=== PATIENT | female | born 1980 | race African-American/Black ===

== ENCOUNTER 2019-07-29 05:37 | Inpatient (IN) | payer OTHER ==
[~2019-07-29] VITALS: Ht 167.6 cm; Wt 93.9 kg
[2019-07-29] MEDS ORDERED: LACTATED RINGERS 1,000 ML IV SCH (06:04)
[2019-07-29] MEDS ORDERED: CARBOPROST 250 MCG/ML AMP IM PRN (06:05)
[2019-07-29] MEDS ORDERED: OXYTOCIN 20 UNITS in LACTATED RINGERS 1,000 ML IV SCH (06:05)
[2019-07-29] MEDS ORDERED: METHYLERGONOVINE 0.2 MG/ML AMP IM PRN ×2 (06:05→08:30)
[2019-07-29] MEDS ORDERED: fentaNYL 0.05 MG/ML VIAL ONE ×2 (06:09→07:49)
[2019-07-29] MEDS ORDERED: CLINDAMYCIN 900 MG/6 ML VIAL IV ONE (06:11)
[2019-07-29 06:57] LABS: HEMATOCRIT 25.4 % (36-48); HEMOGLOBIN 7.3 g/dL (12.0-16.0); MEAN CORPUSCULAR HEMOGLOBIN 17 pg (27-31); MEAN CORPUSCULAR HGB CONC 29 g/dL (33-37); PLATELET COUNT (AUTO) 245 K/uL (140-450); RED BLOOD CELL COUNT(AUTO) 4.39 MIL/uL (4.20-5.40); RED CELL DISTRIBUTION WIDTH 22.7 % (11.6-13.7); WHITE BLOOD COUNT (AUTO) 12.8 K/uL (4.8-10.8)
[2019-07-29 07:16] LABS: ALBUMIN 2.8 g/dL (3.4-5.0); ANION GAP 20.7 (8-16); TOTAL BILIRUBIN 0.6 mg/dL (0.0-1.0)
[2019-07-29 07:28] LABS: POTASSIUM 2.7 mmol/L (3.5-5.1)
[2019-07-29] MEDS ORDERED: OXYTOCIN 20 UNITS/LR PREMIX 1,000 ML IV ONE (07:28)
[2019-07-29] MEDS ORDERED: LIDOCAINE 1% 500 MG/50 ML VIAL ONE (07:37)
[2019-07-29 07:39] LABS: EOSINOPHILS % (MANUAL) 1 % (0-4); LYMPHOCYTES % (MANUAL) 17 % (20-46); MONOCYTES % (MANUAL) 4 % (5-12)
[2019-07-29] MEDS ORDERED: METHYLERGONOVINE 0.2 MG/ML AMP ONE (07:45)
[2019-07-29] MEDS ORDERED: fentaNYL 0.05 MG/ML VIAL IVP ONE (07:50)
[2019-07-29] MEDS ORDERED: CARBOPROST 250 MCG/ML AMP IM ONE (07:51)
[2019-07-29 07:59] VITALS: BP 138/59
[2019-07-29] MEDS ORDERED: INFLUENZA VACCINE QUAD 0.5 ML SYR IMVAC PRN (08:00)
--- NOTE | 2019-07-29 08:15 | NUR ---
PATIENT HAS BEEN SCREENED AND CATEGORIZED LOW NUTRITION RISK. PATIENT WILL BE SEEN WITHIN 7 DAYS OF ADMISSION. 08/04/[address]
[2019-07-29] MEDS ORDERED: IBUPROFEN 800 MG TAB PO PRN (08:30)
[2019-07-29] MEDS ORDERED: BENZOCAINE/MENTHOL 20%-0.5% 60 GM CAN TP PRN (08:30)
[2019-07-29] MEDS ORDERED: MEASLES, MUMPS, AND RUBELLA 1 VIAL SQVAC PRN (08:30)
[2019-07-29] MEDS ORDERED: OXYTOCIN 10 UNITS/ML VIAL IM PRN (08:30)
[2019-07-29] MEDS ORDERED: METHYLERGONOVINE 0.2 MG TAB PO PRN (08:30)
[2019-07-29] MEDS ORDERED: POTASSIUM CHLORIDE 40 MEQ, LIDOCAINE MPF 1% 25 MG in NACL 0.9% 250 ML IV SCH (09:00)
[2019-07-29] MEDS: oxyCODONE/APAP 5/325 MG 1 TAB TAB PO PRN ×2 (09:56→21:31)
[2019-07-29 10:25] LABS: APPEARANCE,URINE CLOUDY (CLEAR); BILIRUBIN,URINE NEGATIVE (NEGATIVE); BLOOD, URINE 3+ (NEGATIVE); COLOR,URINE RED (YELLOW); LEUKOCYTE ESTERASE ,URINE 1+ (NEGATIVE); NITRITE, URINE POSITIVE (NEGATIVE); PH,URINE 6.5 (5.0-9.0); UGLUCOSE TRACE (NEGATIVE)
[2019-07-29] MEDS ORDERED: ONDANSETRON 4 MG TAB PO PRN (10:25)
[2019-07-29 10:28] LABS: BARBITURATE, URINE NEG. ng/ml (NEG <=200); BENZODIAZEPINE, URINE NEG. ng/mL (NEG <=200); CANNABINOID, URINE NEG. ng/mL (NEG <=50); COCAINE, URINE NEG. ng/mL (NEG <=300); OPIATE, URINE NEG. ng/mL (NEG <=2000); PHENCYCLIDINE SCREEN,URINE NEG. ng/mL (NEG <=25)
[2019-07-29 11:59] LABS: RBC,URINE TOO NUMEROUS TO COUN /HPF (0-5)
[2019-07-29 12:00] LABS: WBC,URINE 0-5 /HPF (0-5)
[2019-07-29] MEDS ORDERED: CLINDAMYCIN 900 MG in DEXTROSE 5% 100 ML IV SCH (13:00)
[2019-07-29 14:18] LABS: HEMATOCRIT 25.6 % (36-48); HEMOGLOBIN 7.3 g/dL (12.0-16.0)
[2019-07-29] MEDS ORDERED: ONDANSETRON 4 MG/2 ML VIAL ONE (21:19)
[2019-07-30] MEDS ORDERED: ACETAMINOPHEN EXTRA STRENGTH 500 MG TAB ONE (12:05)
[2019-07-30] MEDS ORDERED: diphenhydrAMINE 50 MG CAP PO ONE (12:07)
[2019-07-31] MEDS ORDERED: diphenhydrAMINE 50 MG CAP PO PRN (08:45)
[2019-07-31] MEDS ORDERED: FAMOTIDINE 20 MG TAB PO SCH (09:00)
[2019-07-31] MEDS ORDERED: FAMOTIDINE 20 MG TAB ONE (10:06)
== END 2019-07-31 18:35 | disposition home or self-care (01) | DRG 560 ==
LOC: MLD 05:37 → MFCC 09:40
PROVIDERS: ADMIT Obstetrics & Gynecology; ATTEND Obstetrics & Gynecology
PROC: 10E0XZZ Delivery of Products of Conception, External Approach (ICD-10-PCS; principal; 2019-07-29)
PROC: 10907ZC Drainage of Amniotic Fluid, Therapeutic from Products of Conception, Via Natural or Artificial Opening (ICD-10-PCS; 2019-07-29)
PROC: 3E0234Z Introduction of Serum, Toxoid and Vaccine into Muscle, Percutaneous Approach (ICD-10-PCS; 2019-07-29)
PROC: 30233N1 Transfusion of Nonautologous Red Blood Cells into Peripheral Vein, Percutaneous Approach (ICD-10-PCS; 2019-07-29)
DX: O77.0 Labor and delivery complicated by meconium in amniotic fluid (principal); O71.82 Other specified trauma to perineum and vulva; Z23 Encounter for immunization; Z37.0 Single live birth; Z3A.39 39 weeks gestation of pregnancy
CPT/HCPCS: 36415; 59409; 80053; 80305; 81001; 85018; 85025; 86592; 86762; 86886; 86900; 86901; 86920; 87086; 87340; 87653-90; 90715; J2001; J2210; J2405; J2590; J3010; J3480; J3490; J7030; J7060; J7120; Q0163